=== PATIENT | male | born 1985 | race Caucasian/White ===

== ENCOUNTER 2024-04-21 14:37 | Outpatient (CLI) | payer OTHER ==
--- NOTE | 2024-04-23 10:15 | MRI Report ---
PROCEDURE: Ankle LT WO INDICATIONS: ANKLE PAIN. Evaluate for flexor tendinitis. Patient with persistent pain along left ank le flexor tendons and tarsal tunnel. TECHNIQUE: Noncontrast Magnetic Resonance Imaging (MRI) of the ankle/hindfoot was performed utilizing the follow ing sequences: sagittal T1 spin echo, sagittal T2 fast spin echo with fat saturation, axial PD fast s pin echo, axial T2 fast spin echo with fat saturation, coronal T1 spin echo, and coronal T2 fast spin echo with fat saturation. COMPARISON: None. FINDINGS: Image quality: Excellent. Bones and joints: No acute trabecular bone injury or fracture. No hindfoot coalition. The ankle mortise is maintained. No osteochondral defect is seen at the talar dome. Focal subchondral edema and cartilage irregularit y is seen at the medial tibial plafond. Medial structures: Mildly increased signal intensity within the deep deltoid ligament fibers is consistent with a remote prior low grade sprain. The spring ligament complex is intact. There is mild distal posterior tibial is tenosynovitis. The flexor digitorum longus and flexor hallucis longus tendons are intact. The post erior tibial neurovascular bundle appears normal within the tarsal tunnel, without extrinsic mass eff ect. Lateral structures: The anterior and posterior distal tibiofibular ligaments are intact. Remote prior low-grade sprain of the anterior talofibular ligament. The calcaneofibular ligament and posterior talofibular ligament a re intact. 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 Mild peroneus brev is and longus tenosynovitis. The sinus tarsi demonstrates normal fatty signal. Anterior structures: The tibialis anterior, extensor hallucis longus, and extensor digitorum longus tendons appear intact. Posterior and plantar structures: The Achilles tendon is intact. The proximal plantar fascia is intact. No disproportionate atrophy of the abductor digiti minimi muscle. IMPRESSION: 1.Clinical history respiratory tearing of the peroneus brevis tendon at the level of the distal fibul a with tendon reconstitution proximal to the calcaneocuboid joint. Mild peroneus brevis and longus te nosynovitis. 2.Remote prior low-grade sprain of the anterior talofibular ligament. 3.Mild distal posterior tibialis tenosynovitis. 4.Remote prior low-grade sprain of the deltoid ligament. Reviewed by: Ned Sosa MD on 04/23/2024 10:13 AM PDT Approved by: Ned Sosa MD on 04/23/2024 10:13 AM PDT Station ID: [id number]
== END 2024-04-21 14:38 | disposition home or self-care (01) ==
LOC: DI 14:37
PROVIDERS: ATTEND Nurse Practitioner Family
DX: S86.312A Strain of muscle(s) and tendon(s) of peroneal muscle group at lower leg level, left leg, initial encounter (principal); S93.492A Sprain of other ligament of left ankle, initial encounter; S93.422A Sprain of deltoid ligament of left ankle, initial encounter; M65.9 Synovitis and tenosynovitis, unspecified